=== PATIENT | male | born 1985 | race Caucasian/White ===

== ENCOUNTER 2016-11-10 16:17 | Emergency (ER) | payer OTHER ==
[~2016-11-10 16:17] MED LIST: BC POWDER PO; CIP2 PO; DIL2TAB PO; LEVSINTAB OR; LORTAB 5 PO; NORCO1 TAB PO; PR25 PO; PYR200 PO; TEARS NATURA OP; UTA OR; ZANTAC 75 PO; ZOFRAN4 PO
== END 2016-11-10 18:00 | disposition home or self-care (01) ==
LOC: ER 16:17
DX: G89.18 Other acute postprocedural pain (principal); K08.89 Other specified disorders of teeth and supporting structures; F17.200 Nicotine dependence, unspecified, uncomplicated; Z88.5 Allergy status to narcotic agent; Z88.8 Allergy status to other drugs, medicaments and biological substances; Z79.899 Other long term (current) drug therapy
CPT/HCPCS: 99282; A9270-GY; J1200

== ENCOUNTER 2016-12-31 15:15 | Emergency (ER) | payer OTHER | END 2016-12-31 16:00 | disposition home or self-care (01) | LOC: ER 15:15 | DX: S22.42XA Multiple fractures of ribs, left side, initial encounter for closed fracture (principal); Z88.5 Allergy status to narcotic agent; Z88.6 Allergy status to analgesic agent; Z88.8 Allergy status to other drugs, medicaments and biological substances; Z79.899 Other long term (current) drug therapy; X58.XXXA Exposure to other specified factors, initial encounter; Y93.72 Activity, wrestling | CPT/HCPCS: 71010; 71100-LT; 99283; A9270-GY ==